=== PATIENT | male | born 1960 | race Caucasian/White ===

== ENCOUNTER 2016-12-02 06:11 | Emergency (ER) | payer OTHER ==
[~2016-12-02] VITALS: Ht 165.1 cm; Wt 89.1 kg
[2016-12-02 06:16] VITALS: Ht 165.1 cm; Wt 89.1 kg
[2016-12-02] MEDS ORDERED: BEN50 PO (06:45)
--- NOTE | 2016-12-02 06:54 | ERD ---
ER Documentation Chief Complaint Date/Time DATE: 12/02/16 TIME: 06:49 Chief Complaint rash and itching intermittent x 2 weeks HPI 56-year-old male complaining of pruritic skin rash 2-3 weeks. The rash is intermittent, more when it is hot, less in the mornings after his sleeps. Patient stated that he has changed his soap about 2 weeks ago. Denies exposure to new foods. Denies shortness of breath. Denies facial or oral swelling. He is was seen by his PCP for the same problem last week, was given Benadryl and cetirizine. ROS All systems reviewed and are negative except as per history of present illness. Medications Home Meds Active Scripts Diphenhydramine Hcl* (Benadryl*) 50 Mg Cap, 50 MG PO Q6H Y for ITCHING/RASH, # 30 CAP Prov:MELIDA MALIN. BIOCHEMISTRY TEACHER 12/02/16 Allergies Allergies: Coded Allergies: No Known Allergy (Unverified , 12/02/16) PMhx/Soc History of Surgery: Yes (removal of cyst in the back) Anesthesia Reaction: No Hx Neurological Disorder: No Hx Respiratory Disorders: No Hx Cardiac Disorders: Yes (hypertension) Hx Psychiatric Problems: No Hx Miscellaneous Medical Probl: No Hx Alcohol Use: Yes (used to drink alcohol) Hx Substance Use: No Hx Tobacco Use: No Smoking Status: Never smoker Physical Exam Vitals Vital Signs Date Time Temp Pulse Resp B/P Pulse Ox O2 Delivery O2 Flow Rate FiO2 12/02/16 06:16 98.1 70 18 156/89 99 Physical Exam General impression: Well-developed, well-nourished. Alert, oriented, in no acute distress Head: Normocephalic, atraumatic. ENT: Nasal mucosa, oral mucosa and oropharynx are normal. Neck: Supple, nontender. No lymphadenopathy. No nuchal rigidity. Respiration: Normal respiratory effort. Lungs clear to auscultate bilaterally. No wheezes, rales or rhonchi. Cardiovascular: Regular rate and rhythm. No murmurs or extra heart sounds. Neuro: Mental status normal, speech normal. SENIOR SPECIALIST grossly intact. Skin: Normal turgor. No rash or lesions. Psych: Normal mood and affect. Procedures/MDM Well-appearing 56-year-old male presented to ED with complaint of pruritic skin lesions. No lesions were found on exam. Based on his history, I suspect that he is rash may be due to allergic reaction to his knee also. I have asked him to change his soap back to while he was using before. Additional Benadryl be prescribed for him. I also advised patient to return to his PCP for a machine former referral if there is no resolution of skin lesions. Patient appears well, stable for discharge and outpatient management. Medical decision making shared with patient and family. Education provided to patient and family. Patient and family expressed understanding of the plan. Medications on discharge: []. Follow-up: Primary care provider in 2-3 days or return to ED if worse. Departure Diagnosis: Primary Impression: Rash Condition: Good Patient Instructions: Self-Care for Skin Rashes Referrals: [facility] YOU HAVE RECEIVED A MEDICAL SCREENING EXAM AND THE RESULTS INDICATE THAT YOU DO NOT HAVE A CONDITION THAT REQUIRES URGENT TREATMENT IN THE EMERGENCY DEPARTMENT. FURTHER EVALUATION AND TREATMENT OF YOUR CONDITION CAN WAIT UNTIL YOU ARE SEEN IN YOUR DOCTORS OFFICE WITHIN THE NEXT 1-2 DAYS. IT IS YOUR RESPONSIBILITY TO MAKE AN APPOINTMENT FOR FOLOW-UP CARE. IF YOU HAVE A PRIMARY DOCTOR --you should call your primary doctor and schedule an appointment IF YOU DO NOT HAVE A PRIMARY DOCTOR YOU CAN CALL OUR PHYSICIAN REFERRAL HOTLINE AT IF YOU CAN NOT AFFORD TO SEE A PHYSICIAN YOU CAN CHOSE FROM THE FOLLOWING [facility] [address] [facility]. [facility] [address] [facility] [facility] [address] [facility] [facility] [address] [facility] [facility] [address] [facility]. [facility]. [address] Additional Instructions: Llame al doctor MAANA y kael filomena MARY PARA DENTRO DE 2-3 PALOMINO.Dgale a la secretaria que nosotros le instruimos hacer esta mary.Avise o llame si ovalle condicin se empeora antes de la mary. Regresa aqui si peor o no mejor. MELIDA MALIN. JUAN A Dec 02, 2016 06:53
== END 2016-12-02 06:55 | disposition home or self-care (01) ==
LOC: FTE 06:11
DX: R21 Rash and other nonspecific skin eruption (principal); I10 Essential (primary) hypertension
CPT/HCPCS: 99283